=== PATIENT | male | born 1965 | race Caucasian/White ===

== ENCOUNTER 2017-07-22 13:02 | Emergency (ER) | payer BC ==
[~2017-07-22] VITALS: Ht 182.9 cm; Wt 88.4 kg
[~2017-07-22 13:02] MED LIST: ASPIR-LOW81 MG PO; AUGMENTIN875 MG PO; COQ-10100 MG PO; IRO PO; METOPROLOL SUCC25 MG PO; NITROGLYCERIN0.4 MG SL; OMEGA 3-6-91200 MG PO; PLAVIX75 MG PO; PRAVASTATIN SOD40 MG PO; PREDNISONE10 M1 PO; PROTONIX40 MG PO; TOPROL XL6.25 MG PO; VENTOLIN HFA18 GM IH; VITAMIN C1000 M1 PO; ZANTAC150 MG PO; [UNRECOGNIZED DRUG - OTHER] PO
[2017-07-22 14:08] LABS: HEMATOCRIT 44.7 % (38.0-50.0); HEMOGLOBIN 15.9 G/DL (12.5-16.6); MCH 32.5 PG (29.0-34.0); MCHC 35.6 G/DL (30.0-36.0); MCV 91.4 FL (86-99); PLATELET COUNT 276 K/uL (156-360); RBC DIS.WIDTH-CV 12.4 % (11.8-14.6); RBC DIS.WIDTH-SD 41.5 % (39-53); RED BLOOD COUNT 4.89 M/uL (4.00-5.50); WHITE BLOOD COUNT 11.6 K/uL (4.1-10.2)
[2017-07-22 14:16] LABS: ALBUMIN 4.4 g/dL (3.2-4.8); CHLORIDE 104 mEq/L (99-109); POTASSIUM 4.3 mEq/L (3.7-5.4); SODIUM 141 mEq/L (136-147)
[2017-07-22 14:19] LABS: GLUCOSE 88 mg/dL (70-99); TOTAL PROTEIN 7.5 g/dL (6.4-8.3)
[2017-07-22 14:21] LABS: TOTAL BILIRUBIN 0.8 mg/dL (0.0-1.0)
[2017-07-22 14:22] LABS: ALKALINE PHOSPHATASE 83 IU/L (3-129); CREATININE 0.8 mg/dL (0.6-1.3); GFR ESTIMATE (CALCULATED) > 59 mL/min/ (58.99-99999)
[2017-07-22 14:24] LABS: AST (GOT) 17 IU/L (2-34); UREA NITROGEN (BUN) 10 mg/dL (9-23)
[2017-07-22 14:25] LABS: ALT (GPT) 18 IU/L (3-49)
[2017-07-22 14:47] LABS: APPEARANCE CLEAR ((CLEAR)); BILIRUBIN NEGATIVE; BLOOD SMALL; COLOR YELLOW ((YELLOW)); GLUCOSE (STRIP) NEGATIVE; KETONES 5; LEUKOCYTES NEGATIVE; NITRITE NEGATIVE; PROTEIN (STRIP) NEGATIVE; UROBILINOGEN 0.2 MG/DL (0.2-1.0)
[2017-07-22 14:50] LABS: BACTERIA RARE /HPF; EPITHELIAL CELLS NONE SEEN /HPF; MUCUS TRACE /LPF; RED BLOOD CELLS 0-5 /HPF (0-5); UCUL ADDED? NO; WHITE BLOOD CELLS 0-5 /HPF (0-5)
[2017-07-22 15:35] LABS: LIPASE 24 U/L (1.0-51.0)
[2017-07-22] MEDS ORDERED: ZOFRAN ODT4 MG PO (16:55)
[2017-07-22] MEDS ORDERED: FLAGYL500 MG PO (16:55)
[2017-07-22] MEDS ORDERED: PERCOCET 5/31 TABLET PO (16:55)
[2017-07-22] MEDS ORDERED: CIPRO500 MG PO (16:55)
[2017-07-22 17:10] VITALS: BP 132/84
== END 2017-07-22 17:11 | disposition home or self-care (01) ==
LOC: EME 13:02
DX: K57.32 Diverticulitis of large intestine without perforation or abscess without bleeding (principal); I10 Essential (primary) hypertension; E78.5 Hyperlipidemia, unspecified; Z95.5 Presence of coronary angioplasty implant and graft; Z79.02 Long term (current) use of antithrombotics/antiplatelets; Z79.82 Long term (current) use of aspirin; Z88.8 Allergy status to other drugs, medicaments and biological substances; F17.200 Nicotine dependence, unspecified, uncomplicated
CPT/HCPCS: 74177; 80053; 81003; 83690; 85027; 99281; 99284